=== PATIENT | female | born 1970 | race African-American/Black ===

== ENCOUNTER → 2016-09-11 | Outpatient (CLI) | payer OTHER ==
--- NOTE | ~2016-09-11 | MY11 ---
[facility] A Service of [facility] / [facility] RADIOLOGY TEXT RESULTS PATIENT: RAD BARRERA LOCATION: [facility] : 70 UNIT #: [id number] AGE: [address]: Felipe Santamaria MD SEX: F ORDER DR: [id number] [facility] [address] [place], [place] [address] [id number] O MR#: [id number] Acc #: [id number] NAME: RAD BARRERA : 1970 SEX: F STUDY DATE/TIME: 09/11/2016 9:29 UNIT: [facility] ROOM: STUDY DESCRIPTION: MY Mammogram Screening Dig [place] Attending Physician: Felipe Santamaria M.D. Ordering Physician: Felipe Santamaria M.D. Primary Care Physician: Felipe Santamaria M.D. MEDICAL IMAGING REPORT This report is preliminary unless electronic signature is present EXAM Screening mammogram, 09/11/16 INDICATIONS A 45-year-old with no personal or family history of breast cancer. No current complaints. FINDINGS Routine digital screening views of both breasts were obtained. Study reviewed with an FDA-approved CAD device. Comparison made with an outside prior mammogram dated 10/04/2010. Breast parenchyma shows scattered fibroglandular densities. No masses or suspicious microcalcifications are seen. IMPRESSION Negative mammogram. Routine screen 1 year recommended. BIRADS 1. Patients over the age of 40 are entered into a reminder system with target due date for the next mammogram. A result letter will also be sent to the patient. BIRADS: 1 Negative Dictated by... Arpit Hicks Jr., M.D. THIS IS AN ELECTRONICALLY VERIFIED REPORT Arpit Hicks Jr., M.D. at 09/17/2016 9:48 AM [facility] A Service of [facility] RADIOLOGY TEXT RESULTS PATIENT: RAD BARRERA LOCATION: [facility] : 70 UNIT #: [id number] AGE: [address]: Felipe Santamaria MD SEX: F ORDER DR: VERONICA/aleksandr TD: 09/16/2016 17:41 JOB #: [id number] MEDICAL IMAGING REPORT Page 1 of 1 COPY
== END | disposition home or self-care (01) ==
LOC: CWCC 09:10
DX: Z12.31 Encounter for screening mammogram for malignant neoplasm of breast (principal)
CPT/HCPCS: G0202

== ENCOUNTER → 2017-03-12 | Outpatient (CLI) | payer OTHER ==
--- NOTE | ~2017-03-12 | CR151 ---
[facility] A Service of [facility] RADIOLOGY TEXT RESULTS PATIENT: RAD BARRERA LOCATION: [facility] : 70 UNIT #: [id number] AGE: [address]: Felipe Santamaria MD SEX: F ORDER DR: [id number] [facility] [address] [place], [place] [address] [id number] O MR#: [id number] Acc #: [id number] NAME: RAD BARRERA : 1970 SEX: F STUDY DATE/TIME: 03/12/2017 15:22 UNIT: [facility] ROOM: STUDY DESCRIPTION: CR Hip Min 2 Views Rt Attending Physician: Felipe Santamaria M.D. Referring Physician: Felipe Santamaria M.D. Ordering Physician: Felipe Santamaria M.D. Primary Care Physician: Felipe Santamaria M.D. MEDICAL IMAGING REPORT This report is preliminary unless electronic signature is present EXAM Right hip, 03/12/2017. HISTORY 46-year-old female with right hip pain for 1 year, status post fall. COMPARISON None FINDINGS 2 views of the right hip demonstrate no acute fracture or dislocation. There are markedly advanced degenerative changes throughout the right hip. Severe right hip joint space narrowing with extensive subchondral sclerosis and cystic change. Flattening of the superior weightbearing right femoral head. There are marginal osteophytes at the right acetabulum and right femoral head/neck. Bony pelvis intact. Sacrum and SI joints intact. Left hip appears within normal limits. IMPRESSION 1. No acute fracture or dislocation. 2. Markedly advanced right hip arthrosis. Dictated by... Flavio Renee M.D. THIS IS AN ELECTRONICALLY VERIFIED REPORT Flavio Renee M.D. at 03/13/2017 8:17 AM KARTIK/val TD: 03/12/2017 19:13 [facility] A Service of [facility] RADIOLOGY TEXT RESULTS PATIENT: [facility]ARR[id number] [birth year] UNIT #: [id number] AGE: [address]: Felipe Santamaria MD SEX: F ORDER DR: JOB #: [id number] MEDICAL IMAGING REPORT Page 1 of 1 COPY
== END | disposition home or self-care (01) ==
LOC: CRAD 14:55
DX: M25.551 Pain in right hip (principal); M25.552 Pain in left hip; M16.11 Unilateral primary osteoarthritis, right hip
CPT/HCPCS: 73502